=== PATIENT | male | born 1990 | race Two or more races ===

== ENCOUNTER 2017-12-16 07:06 | Emergency (ER) | payer OTHER ==
[~2017-12-16] VITALS: Ht 172.7 cm; Wt 72.6 kg
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
[2017-12-16 07:12] VITALS: BP 122/79
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
[2017-12-16 08:15] VITALS: BP 129/72
[2017-12-16 08:44] VITALS: BP 129/72
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
== END 2017-12-16 08:15 | disposition home or self-care (01) ==
LOC: ER 07:06
DX: S33.5XXA Sprain of ligaments of lumbar spine, initial encounter (principal); M54.2 Cervicalgia; V89.2XXA Person injured in unspecified motor-vehicle accident, traffic, initial encounter; Y93.89 Activity, other specified; Y92.89 Other specified places as the place of occurrence of the external cause; Y99.8 Other external cause status
CPT/HCPCS: 72100; 99284